=== PATIENT | female | born 1990 | race Caucasian/White ===

== ENCOUNTER 2018-02-28 13:14 | Outpatient (CLI) | END 2018-02-28 17:47 | disposition home or self-care (01) ==

== ENCOUNTER 2018-04-10 11:32 | Inpatient (IN) | payer OTHER ==
[~2018-04-10] VITALS: Ht 154.9 cm; Wt 67.1 kg
[~2018-04-10 11:32] MED LIST: PNV11TAB PO
[2018-04-10 11:48] VITALS: BP 167/105; PULSE 80; RESP 18; Ht 154.9 cm; Wt 67.1 kg
[2018-04-10] MEDS ORDERED: OXYTOCIN 30 UNITS/LR 500 ML IV SCH ×2 (12:00)
[2018-04-10] MEDS ORDERED: METHYLERGONOVINE 0.2 MG INJ IM PRN (12:00)
[2018-04-10] MEDS ORDERED: CARBOPROST 250 MCG INJ IM PRN (12:00)
[2018-04-10] MEDS ORDERED: AMPICILLIN 2 GM/NS (PMX) 100 ML IV ONE (12:00)
[2018-04-10] MEDS ORDERED: IBUPROFEN 600 MG TAB PO PRN (12:00)
[2018-04-10] MEDS ORDERED: OXYTOCIN 30 UNITS/LR 500 ML IV PRN (12:00)
[2018-04-10] MEDS ORDERED: MISOPROSTOL 200 MCG TAB PR PRN (12:00)
[2018-04-10] MEDS ORDERED: BUTORPHANOL 2 MG INJ IV PRN (12:00)
--- NOTE | 2018-04-10 12:08 | TRIAGE ---
OB Triage Datetime Report Generated by CPN: 04/10/2018 12:08 Datetime: 04/10/2018 11:56 EGA: 36.6 Datetime: 04/10/2018 11:45 Assessment Type: Triage Maternal Assessment Level of Consciousness: Fully Conscious DTR's/Clonus: DTRs 2+; No Clonus Headache: Denies Blurred Vision: No Respiratory Effort: Unlabored; Regular Rhythm; Equal Expansion Breath Sounds, Left: Clear and Equal Breath Sounds, Right: Clear and Equal Nausea/Vomiting: Denies RUQ Epigastric Pain: Denies Lower Extremities Edema: None Degree: None Upper Extremities Edema: None Degree: None Facial Edema: None Fall Risk Assessment History of Falling: (0) No Secondary Diagnosis: (0) No Ambulatory Aid: (0) Bedrest/Nurse Assist IV Therapy: (0) No Gait: (0) Normal/Bedrest/Immobile Mental Status: (0) Oriented to Own Ability Fall Score: 0 Fall Risk Score Definition: No Risk: No action required Datetime: 04/10/2018 11:44 Time of Arrival: 04/10/2018 11:27 EGA: 36.6 Arrived By: Ambulatory Arrived From: Home Chief Complaint: PT. SENT FROM CLINIC FOR EVAL. OF HBP Movement: Present Contractions: Denies/Absent Rupture of Membranes: Denies Vaginal Bleeding: None Vaginal Discharge: Denies Recent Sexual Intercouse: Denies Abdominal Trauma: Not Applicable Patient Complaints: None Time Provider Notified: 04/10/2018 12:00 Provider Notified: HADADIAN Initial Plan: EFM Datetime: 04/10/2018 11:43 Labor Evaluation Monitor Mode: External Heart Rate Monitor Mode: External US Datetime: 02/28/2018 14:15 Fall Score: 0 Fall Risk Score Definition: No Risk: No action required Datetime: 02/28/2018 14:14 EGA: 31.0
[2018-04-10] MEDS ORDERED: MAGNESIUM SULFATE 20 GM/500 ML 500 ML IV ONE (12:18)
[2018-04-10] MEDS ORDERED: MAGNESIUM SULFATE 4 GM/100 ML 100 ML ONE (12:18)
[2018-04-10] MEDS ORDERED: MAGNESIUM SULFATE 4 GM/100 ML 100 ML IV ONE (12:30)
[2018-04-10] MEDS: LACTATED RINGER'S 1,000 ML IV SCH ×2 (12:40→21:57)
[2018-04-10] MEDS: MAGNESIUM SULFATE 20 GM/500 ML 500 ML IV SCH ×2 (13:11→22:12)
[2018-04-10] MEDS ORDERED: MISOPROSTOL 50 MCG CAPSULE VAG ONE (16:00)
[2018-04-10] MEDS: MISOPROSTOL 50 MCG CAPSULE PO SCH ×2 (17:52→21:59)
--- NOTE | 2018-04-10 17:52 | HP ---
Date/Time of Note Date/Time of Note DATE: 04/10/18 TIME: 17:36 OB - History Hx of Present Free Text/Dictation 27 years old with single intrauterine at 36 and 6 days with RIGO of 05/02/2017 and history of preeclampsia in previous checked her blood pressure at home which was 155/100. She called clinic and was advised to come to triage. She states good movement. She denies nausea, vomiting, shortness of breath, chest pain, headache, visual changes, vaginal bleeding or LOF. Risk factors: -Preeclampsia in prior Chief Complaint: Elevated blood pressure Estimated Due Date: May 02, 2017 : 3 Para: 1 Spontaneous : 1 Therapeutic : 0 Care: Good Care Ultrasounds: Normal mid trimester US Obstetrical Complications: Pre-eclampsia Medical Complications: None Past Family/Social History * Past Medical, Surgical, Family and Obstetric Histories reviewed from chart. OB Admission Exam Vital Signs Vital Signs Vital Signs Date Temp Pulse Resp B/P (MAP) Pulse Ox O2 O2 Flow FiO2 Time Delivery Rate 04/10/18 98.4 80 18 167/105 Room Air 11:48 (125) Physical Exam HEENT: WNL Heart: Rhythm Normal Lungs: Clear Abdomen: WNL Extremities: Normal Reflexes: Normal Cervical Dilatation: Fingertip Effacement: 0% Station: -3 Membranes: Intact Heart Rate: 130's Accelerations: Accelerations Present Decelerations: No Decelerations Varibility: Moderate Contractions on Admission: None Last 72 hours Lab Results CBC & BMP 04/10/18 12:30 Liver Function Test 04/10/18 12:30 Alanine Aminotransferase (ALT/SGPT) 27 Albumin 3.1 L Alkaline Phosphatase 340 H Aspartate Amino Transf (AST/SGOT) 36 Direct Bilirubin 0.00 Total Protein 6.4 OB Assessment/Plan Other plan: 27 years old with single intrauterine at 36 weeks and 6 days with preeclampsia admitted in labor and delivery for induction of labor. Currently has no symptom of severe features. She has history of preeclampsia in prior . - FHR: No sign of metabolic acidosis- Category I - Continuous EFM, toco - CBC, blood type and screen, CMP as written above. uric acid is 6.3 - Urinalysis with 2+ urine protein - Magnesium sulfate for seizure prophylaxis - Labetalol IV for BP> 160/110 per protocol - IOL with cytotec per protocol - Analgesia options with R/B/A discussed in detail with patient - Epidural per patient request - Please see the orders - Blood type: O neg. she received RhoGam during - Rubella: immune - GBS: unknown, ampicillin in active phase ordered Admission, procedures, expectations, risks and possible complications have been discussed in detail with the patient. Risk of vaginal delivery including but not limited to bleeding, infection, cervical laceration, placental retention, injury to fetus, blood transfusion, blood transfusion related infection, risk of anesthesia, adhesion, cervical laceration, episiotomy/laceration, possible delivery with risk of bleeding, infection, injury to other organs (bowel, bladder, ureter, vessels, nerves), injury to fetus, blood transfusion, blood transfusion related infection, risk of anesthesia, scar and hernia formation, needs for future , removal of uterus or any other indicated surgery discussed with the patient. She expressed understanding and repeats the risks. All of her questions were answered. She signed the informed consent. PHYSICIAN'S VERIFICATION OF INFORMED CONSENT The patient was counseled regarding the procedure, its indications, risks, potential complications and alternatives and any questions were answered. Consent was obtained. PLANNED PROCEDURE/TREATMENT: Vaginal delivery, episiotomy, repair of laceration possible delivery YVAN SHUKLA Apr 10, 2018 17:51
[2018-04-10] MEDS: AMPICILLIN 1 GM/NS (PMX) 50 ML IV SCH (21:59)
[2018-04-11] VITALS (11 sets, daily range): BP systolic 112–144; BP diastolic 65–93; PULSE 74–89; RESP 16–20
[2018-04-11] MEDS: LACTATED RINGER'S 1,000 ML IV SCH ×2 (00:46→15:45)
[2018-04-11] MEDS: AMPICILLIN 1 GM/NS (PMX) 50 ML IV SCH ×4 (00:47→08:00)
[2018-04-11] MEDS: MISOPROSTOL 50 MCG CAPSULE PO SCH (01:57)
[2018-04-11] MEDS ORDERED: OXYTOCIN 30 UNITS/LR 500 ML IV SCH ×2 (07:00→12:28)
[2018-04-11] MEDS: LIDOCAINE 1% (MPF) 30 ML INJ INJ PRN ×2 (10:21→10:57)
[2018-04-11] MEDS ORDERED: LABETALOL HCL 20MG INJ IV ONE ×2 (11:00→12:30)
[2018-04-11] MEDS: MAGNESIUM SULFATE 20 GM/500 ML 500 ML IV SCH ×3 (11:19→21:20)
--- NOTE | 2018-04-11 11:43 | LDN ---
Date/Time of Note Date/Time of Note DATE: 04/11/18 TIME: 11:40 Delivery Summary April 11, 2018 I was called to attend the delivery of the patient due to nonavailability for primary OB Weeks of Gestation 37 weeks Placenta Delivered: Spontaneously Meconium: none Episiotomy: No Indication for episiotomy N/A Perineal laceration: 2 Laceration repair: Second-degree perineal and vaginal laceration and first-degree periurethral laceration Anesthesia type: None Estimated blood loss: 200 Sponge & Needle done & correct: Yes All needle counts correct: Yes Any foreign bodies felt in the: No Delivery Information Sex Infant Sex: female Apgars 1 Minute: 9 5 Minute: 9 Suctioning Nose & mouth suctioned at silvia: Yes Delee suction performed: Yes Umbilical Cord Umbilical cord with: 3 Vessels Cord presentations: no nuchal cord Cord Blood was obtained: Yes Mother & Baby Disposition Disposition Placenta delivered intact. Fundus was firm at the end of the delivery. Perineal repair was done. Second- degree perineal vaginal laceration and first-degree periurethral laceration. Hemostasis was complete. Fundus was firm at the end of the delivery. Patient will be restarted on magnesium for seizure prophylaxis up until 24 hours postdelivery with close monitoring of blood pressure DIALLO VAZ MD Apr 11, 2018 11:43
[2018-04-11] MEDS ORDERED: MAGNESIUM SULFATE 20 GM/500 ML 500 ML IV SCH (11:45)
[2018-04-11] MEDS ORDERED: MAGNESIUM SULFATE 4 GM/100 ML 100 ML IV SCH (12:00)
[2018-04-11] MEDS ORDERED: CA GLUCONATE (GM) 10% 10ML INJ IV PRN ×2 (12:00→12:30)
[2018-04-11] MEDS ORDERED: NACL 0.9% 3 ML SYG IV SCH ×2 (12:00→12:30)
[2018-04-11] MEDS ORDERED: OXYTOCIN 30 UNITS/LR 500 ML IV PRN (12:30)
[2018-04-11] MEDS ORDERED: CARBOPROST 250 MCG INJ IM PRN (12:30)
[2018-04-11] MEDS ORDERED: ZOLPIDEM 5 MG TAB PO PRN (12:30)
[2018-04-11] MEDS ORDERED: LANOLIN HPA 1 PKT TOP PRN (12:30)
[2018-04-11] MEDS ORDERED: MISOPROSTOL 200 MCG TAB PR PRN (12:30)
[2018-04-11] MEDS ORDERED: hydrALAzine 20 MG INJ IV PRN (12:30)
[2018-04-11] MEDS ORDERED: WITCH HAZEL/GLYCERIN PAD PR PRN (12:30)
[2018-04-11] MEDS ORDERED: ONDANSETRON 4 MG INJ IV PRN (12:30)
[2018-04-11] MEDS ORDERED: DIPHENHYDRAMINE 25 MG CAP PO PRN (12:30)
[2018-04-11] MEDS ORDERED: LABETALOL HCL 20MG INJ IV PRN ×2 (12:30)
[2018-04-11] MEDS: IBUPROFEN 600 MG TAB PO SCH (18:07)
[2018-04-11] MEDS: SENNA/DOCUSATE NA (8.6MG/50MG) TAB PO SCH ×2 (19:58→21:14)
[2018-04-11] MEDS: HYDROCODONE/APAP (5/325) TAB PO PRN (21:31)
[2018-04-12] VITALS (11 sets, daily range): BP systolic 108–160; BP diastolic 60–106; PULSE 71–108; RESP 16–20
[2018-04-12] MEDS: IBUPROFEN 600 MG TAB PO SCH ×5 (00:29→23:31)
[2018-04-12] MEDS: LABETALOL 100 MG TAB PO SCH ×3 (02:19→21:15)
[2018-04-12] MEDS: PHENOBARBITAL 32.4 MG TAB PO SCH ×4 (02:43→21:14)
[2018-04-12] MEDS: LACTATED RINGER'S 1,000 ML IV SCH (03:29)
[2018-04-12] MEDS: HYDROCODONE/APAP (5/325) TAB PO PRN (05:57)
[2018-04-12] MEDS: SENNA/DOCUSATE NA (8.6MG/50MG) TAB PO SCH ×2 (09:07→21:00)
--- NOTE | 2018-04-13 00:55 | PN ---
Date/Time of Note Date/Time of Note DATE: 04/13/18 TIME: 00:52 OB Subjective Subjective Subjective Entry note. Patient seen on 04/12/2018 at 1900 PPD# 1 Patient is doing well. She denies nausea, vomiting, shortness of breath, chest pain, headache. She has been ambulating without difficulty, tolerating regular diet. Pain is well controlled on current medications OB Objective Objective Objective VS - Last 72 Hours, by Label Date Temp Pulse Resp B/P (MAP) Pulse Ox O2 O2 Flow FiO2 Time Delivery Rate 04/12/18 98.6 86 20 149/76 Room Air 20:00 (100) 04/12/18 98.3 86 16 154/83 Room Air 16:50 (106) 04/12/18 78 18 130/82 Room Air 12:45 (98) 04/12/18 98.1 76 18 136/71 Room Air 08:30 (92) 04/12/18 74 18 128/87 Room Air 06:00 (101) 04/12/18 80 18 119/71 Room Air 05:00 (87) 04/12/18 108 17 108/60 Room Air 04:00 (76) 04/12/18 74 16 120/75 Room Air 03:00 (90) 04/12/18 71 18 141/89 Room Air 02:00 (106) 04/12/18 80 18 160/106 Room Air 01:00 (124) 04/12/18 98.0 81 19 145/84 99 Room Air 00:00 (104) 04/11/18 76 18 119/65 Room Air 23:00 (83) 04/11/18 77 16 112/65 Room Air 22:00 (81) 04/11/18 86 18 129/87 Room Air 21:00 (101) 04/11/18 98.2 86 18 135/88 Room Air 20:00 (104) 04/11/18 83 18 132/79 Room Air 19:00 (96) 04/11/18 87 16 128/87 Room Air 18:00 (101) 04/11/18 89 17 140/89 17:00 (106) 04/11/18 98.4 80 16 143/93 Room Air 16:00 (110) 04/11/18 75 16 141/85 Room Air 15:00 (103) 04/11/18 74 16 124/80 Room Air 14:00 (95) 04/11/18 98.0 78 20 144/83 Room Air 13:00 (103) 04/10/18 98.4 80 18 167/105 Room Air 11:48 (125) General: AAO X 3, comfortable, NAD, appropriate mood and affect. ABD: +BS. Soft, non-tender. Uterus 2 cm below umbilicus Flank: No CVA tenderness (B/L) LE: Mild edema. No clubbing, cyanosis, thigh or calf tenderness (B/L). Homans 'sign is negative OB Assessment/Plan Other plan: 27 years old with preeclampsia s/p normal vaginal delivery at 37 weeks. PPD#1 - AF, VSS - Baby is doing well, at bed side. She is bonding well - Contraception methods with R/B/A/FR discussed - Continue care - Discharge home tomorrow - Rx and instruction given - Follow up in 2 and 6 weeks at clinic YVAN SHUKLA Apr 13, 2018 00:55
[2018-04-13 03:19] VITALS: BP 151/93; PULSE 75; RESP 20
[2018-04-13] MEDS: LACTATED RINGER'S 1,000 ML IV SCH (04:28)
[2018-04-13] MEDS: IBUPROFEN 600 MG TAB PO SCH ×2 (05:27→12:23)
[2018-04-13 06:42] VITALS: BP 152/69; PULSE 72
--- NOTE | 2018-04-13 07:02 | PN ---
Date/Time of Note Date/Time of Note DATE: 04/13/18 TIME: 06:55 OB Subjective Subjective Subjective PPD# 2 Patient is doing well. She denies nausea, vomiting, shortness of breath, chest pain, headache. She has been ambulating without difficulty, tolerating regular diet. Pain is well controlled on current medications OB Objective Objective Objective VS - Last 72 Hours, by Label Date Temp Pulse Resp B/P (MAP) Pulse Ox O2 O2 Flow FiO2 Time Delivery Rate 04/13/18 72 152/69 06:42 (96) 04/13/18 98.4 75 20 151/93 Room Air 03:19 (112) 04/12/18 98.6 86 20 149/76 Room Air 20:00 (100) 04/12/18 98.3 86 16 154/83 Room Air 16:50 (106) 04/12/18 78 18 130/82 Room Air 12:45 (98) 04/12/18 98.1 76 18 136/71 Room Air 08:30 (92) 04/12/18 74 18 128/87 Room Air 06:00 (101) 04/12/18 80 18 119/71 Room Air 05:00 (87) 04/12/18 108 17 108/60 Room Air 04:00 (76) 04/12/18 74 16 120/75 Room Air 03:00 (90) 04/12/18 71 18 141/89 Room Air 02:00 (106) 04/12/18 80 18 160/106 Room Air 01:00 (124) 04/12/18 98.0 81 19 145/84 99 Room Air 00:00 (104) 04/11/18 76 18 119/65 Room Air 23:00 (83) 04/11/18 77 16 112/65 Room Air 22:00 (81) 04/11/18 86 18 129/87 Room Air 21:00 (101) 04/11/18 98.2 86 18 135/88 Room Air 20:00 (104) 04/11/18 83 18 132/79 Room Air 19:00 (96) 04/11/18 87 16 128/87 Room Air 18:00 (101) 04/11/18 89 17 140/89 17:00 (106) 04/11/18 98.4 80 16 143/93 Room Air 16:00 (110) 04/11/18 75 16 141/85 Room Air 15:00 (103) 04/11/18 74 16 124/80 Room Air 14:00 (95) 04/11/18 98.0 78 20 144/83 Room Air 13:00 (103) 04/10/18 98.4 80 18 167/105 Room Air 11:48 (125) General: AAO X 3, comfortable, NAD, appropriate mood and affect. ABD: +BS. Soft, non-tender. Uterus 2 cm below umbilicus Flank: No CVA tenderness (B/L) LE: Mild edema. No clubbing, cyanosis, thigh or calf tenderness (B/L). Homans 'sign is negative OB Assessment/Plan Other plan: 27 years old with preeclampsia s/p normal vaginal delivery at 37 weeks. PPD#2 - AF, VSS - Baby is doing well, at bed side. She is bonding well - Contraception methods with R/B/A/FR discussed - Continue care - Labetalol 200 mg q12 hrs - Possible discharge home later today if blood pressure remains stable on Procardia, if not will be discharged tomorrow - Rx and instruction given - Follow up in 2 and 6 weeks at clinic YVAN SHUKLA Apr 13, 2018 07:02
--- NOTE | 2018-04-13 07:11 | DS ---
Date/Time of Note Date/Time of Note DATE: 04/13/18 TIME: 07:05 Obstetrical Discharge Record Final Diagnosis Final Diagnosis: Term delivered Other Final Diagnosis 27 years old with preeclampsia s/p normal vaginal delivery at 37 weeks. PPD#2. She received magnesium sulfate after admission and for 24 hours after delivery. Her blood pressure were stable, again increasing since yesterday. Labetalol 200 mg every 12 hours started. Blood pressure will be checked every 4 hours, if blood pressure remains stable on labetalol she will discharge home today if not discharge home tomorrow. She currently denies symptom of preeclampsia with severe features - AF, VSS - Baby is doing well, at bed side. She is bonding well - Contraception methods with R/B/A/FR discussed - Continue care - Labetalol 200 mg q12 hrs - Rx and instruction given - Follow up in 2 and 6 weeks at clinic Vaginal Delivery Obstetrical Delivery: Spontaneous Condition on Discharge Physical Assessment Last Vitals: Vital Signs Date Temp Pulse Resp B/P (MAP) Pulse Ox O2 O2 Flow FiO2 Time Delivery Rate 04/13/18 72 152/69 06:42 (96) 04/13/18 98.4 20 Room Air 03:19 04/12/18 99 00:00 Voiding: Yes Bowel Movement: Yes Breast: Soft, non-tender Fundus: Firm Calf Tenderness: No Patient Condition: Stable YVAN SHUKLA Apr 13, 2018 07:11
[2018-04-13 08:00] VITALS: BP 148/91; PULSE 73; RESP 18
[2018-04-13] MEDS: SENNA/DOCUSATE NA (8.6MG/50MG) TAB PO SCH (08:13)
[2018-04-13] MEDS ORDERED: DIPHTH/TET/ACEL PERTUSS (ADULT) 0.5 ML VIAL IM* ONE (09:00)
[2018-04-13] MEDS ORDERED: LABETALOL 200 MG TAB PO SCH (09:00)
[2018-04-13] MEDS ORDERED: VARICELLA VACCINE LIVE/PF 1,350 UNIT/0.5 ML ML SC* ONE (09:00)
[2018-04-13] MEDS ORDERED: MEASLES,MUMPS,RUBELLA VACCINE INJ SC* ONE (09:00)
[2018-04-13] MEDS: HYDROCODONE/APAP (5/325) TAB PO PRN (10:26)
[2018-04-13 12:24] VITALS: BP 121/75; PULSE 82; RESP 18
[2018-04-13 15:30] VITALS: BP 141/84; PULSE 78; RESP 18
== END 2018-04-13 17:14 | disposition home or self-care (01) | DRG 807 ==
LOC: OBT 11:32 → L-D 11:32 → OBT 12:03 → L-D 12:28 → PP1 04-11 12:56
PROVIDERS: ADMIT Obstetrics & Gynecology; ATTEND Obstetrics & Gynecology
PROC: 10E0XZZ Delivery of Products of Conception, External Approach (ICD-10-PCS; principal; 2018-04-11)
PROC: 0KQM0ZZ Repair Perineum Muscle, Open Approach (ICD-10-PCS; 2018-04-11)
PROC: 0UQGXZZ Repair Vagina, External Approach (ICD-10-PCS; 2018-04-11)
DX: O14.94 Unspecified pre-eclampsia, complicating childbirth (principal); Z37.0 Single live birth; O70.1 Second degree perineal laceration during delivery; Z3A.37 37 weeks gestation of pregnancy
CPT/HCPCS: 76815; 80053; 80069; 80076; 81001; 83615; 83735; 84560; 85014; 85018; 85025; 85362; 85384; 85610; 85730; 86592; 86850; 86870; 86885; 86900; 86901; 87340; 90716; 99464; G0463; J0290; J0595; J2590; J2790; J3475; J7120